=== PATIENT | female | born 1965 | race Caucasian/White ===

== ENCOUNTER 2018-11-20 17:53 | Emergency (ER) | payer BC, OTHER ==
[2018-11-20] MEDS ORDERED: Adacel (T-DAP) 0.5 ML SYRINGE ONE (18:09)
== END 2018-11-20 18:50 | disposition home or self-care (01) ==
LOC: BURERS 17:53
DX: S61.217A Laceration without foreign body of left little finger without damage to nail, initial encounter (principal); D50.9 Iron deficiency anemia, unspecified; W26.0XXA Contact with knife, initial encounter
CPT/HCPCS: 12002; 90471; 90715